=== PATIENT | female | born 1945 | race Caucasian/White ===

== ENCOUNTER 2018-01-10 21:07 | Observation (INO) ==
[2018-01-10] MEDS ORDERED: BENADRYL INJ 50 MG VIAL ONE (21:17)
[2018-01-10] MEDS ORDERED: SOLU-Medrol 125 MG VIAL ONE (21:17)
[2018-01-10] MEDS ORDERED: PEPCID 20 MG IV PREMIX* 20 MG/50 ML BAG IV ONE ×2 (21:18→21:19)
[2018-01-10] MEDS ORDERED: NS 1000 ML 1,000 ML ONE (21:18)
[2018-01-10] MEDS ORDERED: NS 1000 ML 1,000 ML IV ONE (21:19)
[2018-01-10] MEDS ORDERED: SOLU-Medrol 125 MG VIAL IVP ONE (21:19)
[2018-01-10] MEDS ORDERED: BENADRYL INJ 50 MG VIAL IVP ONE (21:19)
[2018-01-10 22:10] LABS: BASOPHILS # (AUTO) 0.1 X10^3/uL (0.0-0.1); BASOPHILS % (AUTO) 1.1 % (0.2-1.0); EOSINOPHILS # (AUTO) 0.3 x10^3/uL (0.0-0.2); EOSINOPHILS % (AUTO) 2.6 % (0.9-2.9); HEMATOCRIT 44.8 % (36.0-47.0); HEMOGLOBIN 14.9 g/dL (12.0-16.0); LYMPHOCYTES # (AUTO) 4.1 X10^3/uL (1.3-2.9); MEAN CORPUSCULAR HEMOGLOBIN 31.1 pg (27.0-34.0); MEAN CORPUSCULAR HGB CONC 33.3 g/dL (33.0-35.0); MEAN CORPUSCULAR VOLUME 93.5 fL (80.0-100.0); MEAN PLATELET VOLUME 9.2 fL (7.4-11.0); MONOCYTES # (AUTO) 1.1 x10^3/uL (0.3-0.8); MONOCYTES % (AUTO) 10.8 % (0.0-13.0); NEUTROPHILS # (AUTO) 4.9 x10^3/uL (2.2-4.8); NEUTROPHILS % (AUTO) 46.5 % (42.0-75.0); PLATELET COUNT 288 X10^3/uL (150.0-450.0); RED CELL DISTRIBUTION WIDTH 14.3 % (11.6-16.5); WHITE BLOOD COUNT 10.5 X10^3/uL (3.6-10.0)
[2018-01-10 22:18] LABS: ALANINE AMINOTRANSFERASE 30 Units/L (12-78); ALKALINE PHOSPHATASE 53 Units/L (46-116); ASPARTATE AMINO TRANSFERASE 22 Units/L (15-37); BLOOD UREA NITROGEN 44 mg/dL (7-18); CALCIUM 9.8 mg/dL (8.5-10.1); CARBON DIOXIDE 21.4 mmol/L (21-32); CHLORIDE 102 mmol/L (98-107); COR NA(FOR HYPERGLY) 142 mmol/L (136-145); SODIUM 140 mmol/L (136-145); TOTAL PROTEIN 7.6 g/dL (6.4-8.2); eGFR NON BLACK RACES 25 (>60)
--- NOTE | 2018-01-10 22:58 | DR.GENAD ---
HPI - PCP Primary Care Physician: HILL - HPI Comment HPI Comment: GENERALIZE HIVES AND PRURITUS AFTER CIPRO WAS TAKEN. NO THROAT DISCOMFORT. SLIGHT SOB. PATIENT FELT NAUSEA AND VOMITED. FELT LIKE SHE WAS GOING TO PASS OUT. SHE DID NOT FEEL GOOD AT THIS STAGE. CAME TO ED. - Complaint/Symptoms Chief Complaint Doctors Comments: ALLERGIC REACTION TO CIPRO, NEAR SYNCOPAL EPISODE. Chief Complaint:: POSSIBLE ALLERGIC REACTION. PRESCRIBED CIPRO 500MG PO BID TODAY, TOOK FIRST DOSE AT 1900 TONIGHT. STARTED WITH N/V, RASH, ITCHING, BECAME DIAPHORETIC, AND NEAR SYNCOPE 20 MINS AFTER TAKING MEDICATION. NOTE RASH TO ARMS BILAT. , PATIENT SCRATCHING, PATIENT WITH MILD SHAKING UNCONTROLLABLE. PATIENT WITH NO RESPIRATORY S/S. Self Treatment fo Chief Complaint: NONE - Nurses notes reviewed Nurses Notes Review: Yes - Source History Provided: Patient - Mode of Arrival Mode of Arrival: Ambulatory - Timing Onset of Chief Complaint: 01/10/18 Came on: Suddenly - Duration Duration: Constant Duration: Hours - Severity Severity: Moderate PMH - PMH Past Medical History: Yes Past Medical History: Diabetes, Dyslipidemia, Hypertension, Hypothyroidism Past Surgical History: Yes Surgical History: Cholecystectomy Past Surgical History Comment: PARTIAL HYSTERECTOMY. BLADDER TACT - Family History History of Family Medical Conditions: No - Social History Does patient currently use any type of tobacco product: No Have you used tobacco products in the last 12 months: No Type of Tobacco Use: None Does any household member use tobacco: No Alcohol Use: None Do you use any recreational Drugs:: No Lives With: Spouse Lives Where: Home - infectious screening Have you traveled outside the country in the last 6 months?: No Isolation: Standard ROS - Review of Systems Constitutional: No Symptoms Reported Eyes: No Symptoms Reported ENTM: No Symptoms Reported Respiratoy: No Symptoms Reported Cardiovascular: No Symptoms Reported Gastrointestinal/Abdominal: No Symptoms Reported Genitourinary: No Symptoms Reported Neurological: No Symptoms Reported Musculoskeletal: No Symptoms Reported Integumentary: No Symptoms Reported Hematologic/Lymphatic: No Symptoms Reported Endocrine: No Symptoms Reported All Other Systems: Reviewed and Negative PE - General Limitations: No Limitations General Appearance: Alert - Head Head Exam: Normal Inspection - Eyes Eye exam: Normal Appearance - ENT ENT Exam: Normal External Ear Exam External Ear Exam: Normal External Inspection TM/Canal Exam: Bilateral Normal Nose Exam: Normal Nose Exam Mouth Exam: Normal Inspection Throat Exam: Normal Inspection - Neck Neck Exam: Normal Inspection - Chest Chest Inspection: Normal Inspection - Respiratory Respiratory Exam: Normal Lung Sounds Bilat Respiratory Exam: Bilateral Clear to Auscultation - Cardiovascular Cardiovascular Exam: Regular Rate, Normal Rhythm, Normal Heart Sounds - Abdominal Exam Abdominal Exam: Normal Bowel Sounds, Soft. negative: Tenderness - Back Back Exam: Normal Inspection - Neurologic Neurological Exam: Alert, Oriented X3, CN II-XII Intact. negative: Motor Sensory Deficit - Vital Signs Vitals: Temperature 97.5 F Pulse Rate [Right Brachial] 84 Pulse Rate 86 Respiratory Rate 18 Blood Pressure [Right Arm] 168/72 Blood Pressure 122/58 O2 Sat by Pulse Oximetry 95 Course - Treatment Treatment: SEE ORDERS. - Consultation Consultation Comments: PATIENT ADMITTED BY DR ALEJANDRE. - Education/Counseling Education/Counseling: Patient, Family, Education Educated On: Diagnosis ROR - Labs Reviewed Laboratory Results Reviewed?: Yes Result Diagrams: 01/10/18 21:30 01/10/18 21:30 - Labs Reviewed Laboratory: WBC 10.5 X10^3/uL (3.6-10.0) H 01/10/18 21:30 RBC 4.80 X10^6/uL (3.5-5.4) 01/10/18 21:30 Hgb 14.9 g/dL (12.0-16.0) 01/10/18 21:30 Hct 44.8 % (36.0-47.0) 01/10/18 21:30 MCV 93.5 fL (80.0-100.0) 01/10/18 21:30 MCH 31.1 pg (27.0-34.0) 01/10/18 21:30 MCHC 33.3 g/dL (33.0-35.0) 01/10/18 21:30 RDW 14.3 % (11.6-16.5) 01/10/18 21:30 Plt Count 288 X10^3/uL (150.0-450.0) 01/10/18 21:30 MPV 9.2 fL (7.4-11.0) 01/10/18 21:30 Neut % (Auto) 46.5 % (42.0-75.0) 01/10/18 21:30 Lymph % (Auto) 39.0 % (21.0-51.0) 01/10/18 21:30 [place] % (Auto) 10.8 % (0.0-13.0) 01/10/18 21:30 Eos % (Auto) 2.6 % (0.9-2.9) 01/10/18 21:30 Baso % (Auto) 1.1 % (0.2-1.0) H 01/10/18 21:30 Neut # (Auto) 4.9 x10^3/uL (2.2-4.8) H 01/10/18 21:30 Lymph # (Auto) 4.1 X10^3/uL (1.3-2.9) H 01/10/18 21:30 [place] # (Auto) 1.1 x10^3/uL (0.3-0.8) H 01/10/18 21:30 Eos # (Auto) 0.3 x10^3/uL (0.0-0.2) H 01/10/18 21:30 Baso # (Auto) 0.1 X10^3/uL (0.0-0.1) 01/10/18 21:30 Absolute Nucleated RBC 0.1 /100WBC 01/10/18 21:30 Sodium 140 mmol/L (136-145) 01/10/18 21:30 Corrected Sodium 142 mmol/L (136-145) 01/10/18 21:30 Potassium 4.3 mmol/L (3.5-5.1) 01/10/18 21:30 Chloride 102 mmol/L (98-107) 01/10/18 21:30 Carbon Dioxide 21.4 mmol/L (21-32) 01/10/18 21:30 BUN 44 mg/dL (7-18) H 01/10/18 21:30 Creatinine 2.10 mg/dL (0.55-1.02) H 01/10/18 21:30 Est GFR (MDRD) Af Amer 30 (>60) L 01/10/18 21:30 Est GFR (MDRD) Non-Af 25 (>60) L 01/10/18 21:30 Glucose 175 mg/dL (65-99) H 01/10/18 21:30 Calcium 9.8 mg/dL (8.5-10.1) 01/10/18 21:30 Corrected Calcium TNP 01/10/18 21:30 Total Bilirubin 0.60 mg/dL (0.2-1.0) 01/10/18 21:30 AST 22 Units/L (15-37) 01/10/18 21:30 ALT 30 Units/L (12-78) 01/10/18 21:30 Alkaline Phosphatase 53 Units/L (46-116) 01/10/18 21:30 Total Protein 7.6 g/dL (6.4-8.2) 01/10/18 21:30 Albumin 4.0 g/dL (3.4-5.0) 01/10/18 21:30 Globulin 3.6 g/dL (2.5-4.5) 01/10/18 21:30 Albumin/Globulin Ratio 1.1 Ratio (1.1-2.1) 01/10/18 21:30 - Diagnosis Discharge Problem: Allergic reaction to drug, Near syncope - Discharge Plan Disposition: ADMITTED INPATIENT Condition: Stable
[2018-01-10] MEDS ORDERED: NS 1000 ML 1,000 ML IV SCH (23:00)
[2018-01-10 23:54] LABS: BILIRUBIN,URINE NEGATIVE (NEGATIVE); BLOOD/HEMOGLOBIN,URINE 1+ (NEGATIVE); GLUCOSE, URINE 4+ (NEGATIVE); KETONES,URINE NEGATIVE (NEGATIVE); LEUKOCYTE ESTERASE ,URINE 3+ (NEGATIVE); NITRITES,URINE POSITIVE (NEGATIVE); PROTEIN,URINE 2+ (NEGATIVE); UROBILINOGEN,URINE NORMAL (NORMAL)
[2018-01-11 00:05] LABS: APPEARANCE,URINE CLOUDY (CLEAR); BACTERIA,URINE 2+ /HPF (NEGATIVE); COLOR,URINE YELLOW (YELLOW); RBC,URINE 0-2 /HPF (NONE SEEN); SQUAMOUS EPITHELIAL CELL,UR FEW /HPF (NEGATIVE)
[2018-01-11 00:47] VITALS: BMI 29.4
[2018-01-11] MEDS ORDERED: BENADRYL INJ 50 MG VIAL IVP PRN (02:44)
[2018-01-11] MEDS ORDERED: SOLU-Medrol 40 MG VIAL IVP SCH (06:00)
[2018-01-11 06:19] LABS: BASOPHILS % (AUTO) 0.4 % (0.2-1.0); EOSINOPHILS % (AUTO) 0.2 % (0.9-2.9); HEMATOCRIT 40.4 % (36.0-47.0); HEMOGLOBIN 13.5 g/dL (12.0-16.0); LYMPHOCYTES # (AUTO) 1.1 X10^3/uL (1.3-2.9); LYMPHOCYTES % (AUTO) 11.3 % (21.0-51.0); MEAN CORPUSCULAR HEMOGLOBIN 31.3 pg (27.0-34.0); MEAN CORPUSCULAR HGB CONC 33.4 g/dL (33.0-35.0); MEAN CORPUSCULAR VOLUME 93.7 fL (80.0-100.0); MONOCYTES # (AUTO) 0.1 x10^3/uL (0.3-0.8); MONOCYTES % (AUTO) 1.6 % (0.0-13.0); NEUTROPHILS # (AUTO) 8.2 x10^3/uL (2.2-4.8); NEUTROPHILS % (AUTO) 86.5 % (42.0-75.0); PLATELET COUNT 199 X10^3/uL (150.0-450.0); RED BLOOD COUNT 4.31 X10^6/uL (3.5-5.4); RED CELL DISTRIBUTION WIDTH 14.3 % (11.6-16.5); WHITE BLOOD COUNT 9.5 X10^3/uL (3.6-10.0)
[2018-01-11] MEDS: SYNTHROID 112 mcg TAB PO SCH ×2 (06:23→08:56)
[2018-01-11 06:45] LABS: ALANINE AMINOTRANSFERASE 37 Units/L (12-78); ALBUMIN 3.5 g/dL (3.4-5.0); ALKALINE PHOSPHATASE 46 Units/L (46-116); ASPARTATE AMINO TRANSFERASE 20 Units/L (15-37); BLOOD UREA NITROGEN 46 mg/dL (7-18); CALCIUM 9.1 mg/dL (8.5-10.1); CARBON DIOXIDE 22.7 mmol/L (21-32); CHLORIDE 105 mmol/L (98-107); COR NA(FOR HYPERGLY) 142 mmol/L (136-145); CREATININE 1.98 mg/dL (0.55-1.02); SODIUM 138 mmol/L (136-145); TOTAL PROTEIN 6.9 g/dL (6.4-8.2); eGFR NON BLACK RACES 26 (>60)
[2018-01-11] MEDS ORDERED: GLUCOPHAGE ONE (08:22)
--- NOTE | 2018-01-11 08:40 | DR.H&P ---
H&P - History & Physical for Day of: H&P Date: 01/10/18 - Chief Complaint Chief Complaint: POSSIBLE ALLERGIC REACTION - History of Present Illness History of Present Illness: IS A 72 YEAR OLD PATIENT OF OURS WHO PRESENTED TO THE EMERGENCY ROOM WITH COMPLAINTS OF NAUSEA, VOMITING, RASH, ITCHING, DIAPHORESIS, AND FEELING FAINT. PATIENT REPORTS THAT SYMPTOMS STARTED APPROXIMATELY 20 MINUTES AFTER TAKING A DOSE OF CIPRO THAT WAS PRESCRIBED FOR HER TODAY FOR A URINARY TRACT INFECTION. SHE DENIES SHORTNESS OF BREATH OR THROAT DISCOMFORT. ON EXAMINATION, PATIENT NOTED WITH GENERALIZED HIVES AND PRURITIS. ON ARRIVAL TO THE ER, VITALS WERE 97.5-86-18-98%-122/58. LABS WERE OBTAINED. ABNORMAL LAB VALUES INCLUDE THE FOLLOWING: WBC 10.5, BUN 44, CREATININE 2.10, GLUCOSE 175. SHE WAS GIVEN SOLU-MEDROL 125MG IV X 1, PEPCID 20MG IV X 1, BENADRYL 50MG IV X 1, NORMAL SALINE BOLUS WITH SLIGHT IMPROVEMENT IN SYMPTOMS. WE ADMITTED PATIENT FOR FURTHER EVALUATION AND TREATMENT. SHE WAS STARTED ON NORMAL SALINE AT 50ML/HR, PEPCID 20MG IV DAILY, BENADRYL 50MG IV Q8H , SOLU-MEDROL 40MG IV Q8H, AND HOME MEDICATIONS WERE RESUMED. - Past Medical History Past Medical History: Diabetes, Dyslipidemia, Hypertension, Hypothyroidism - Past Surgical History Surgical History: Cholecystectomy - Social History Does patient currently use any type of tobacco product: No Have you used tobacco products in the last 12 months: No Type of Tobacco Use: None Does any household member use tobacco: No Alcohol Use: None Drug Use: None - Medications Home Medications: ciprofloxacin [From Cipro] Allergy (Verified 01/10/18 21:20) iodine Allergy (Verified 01/10/18 21:40) CONTINUE taking the following medications atorvastatin 1 tab PO HS 01/10/18 [History] canagliflozin [Invokana] 1 tab PO DAILY 01/10/18 [History] cholecalciferol (vitamin D3) [Vitamin D3] 2 tab PO DAILY 01/10/18 [History] fluoxetine 1 cap PO DAILY 01/10/18 [History] glimepiride 6.5 mg PO BID 01/10/18 [History] levothyroxine 1 tab PO DAILY 01/10/18 [History] losartan 1 tab PO DAILY 01/10/18 [History] metformin 1 tab PO BID 01/10/18 [History] omeprazole 1 tab PO DAILY 01/10/18 [History] triamterene-hydrochlorothiazid 2 cap PO DAILY 01/10/18 [History] - Review of Systems Constitutional: Sweats, Weakness ENT: No Symptoms Reported Respiratory: No Symptoms Reported Cardiovascular: Light Headedness Gastrointestinal: See HPI, Nausea, Vomiting Genitourinary: No Symptoms Reported Musculoskeletal: No Symptoms Reported Skin: See HPI, Rash Neurological: Weakness - Physical Exam Vital Signs: Temperature 97.9 F Pulse Rate [Right Brachial] 87 Pulse Rate 86 Respiratory Rate 20 Blood Pressure [Right Arm] 128/62 Blood Pressure 122/58 O2 Sat by Pulse Oximetry 94 Oriented: Normal Eyes: Normal Ear: Normal Nose: Normal Throat: Normal Respiratory: Diminished Throughout Cardiovascular: Normal. negative: S3, S4, Murmur : Normal Auscultation: Bowel Sounds: Normal Palpation: Normal Tenderness: Normal Skin: Rash, Red, Diaphoresis Musculoskeletal: Normal Psychiatric: Normal Mood Description: Calm Affect: Normal Speech Pattern: Clear - Assessment/Plan (1) Allergic reaction to drug Qualifiers: Encounter type: initial encounter Qualified Code(s): T78.40XA - Allergy, unspecified, initial encounter Status: Acute Plan: ADMIT, NORMAL SALINE AT 50ML/HR, BENADRYL PRN, COLU-MEDROL 40MG IV Q8H, PEPCID 20MG IV DAILY, CONTINUE TO MONITOR - Allergies Allergies/Adverse Reactions: Allergies Allergy/AdvReac Type Severity Reaction Status Date / Time ciprofloxacin [From Cipro] Allergy Verified 01/10/18 21:20 iodine Allergy Verified 01/10/18 21:40
[2018-01-11] MEDS ORDERED: CANAGLIFLOZIN PO SCH (09:00)
[2018-01-11] MEDS ORDERED: PEPCID 20 MG IV PREMIX* 20 MG/50 ML BAG IV SCH (09:00)
[2018-01-11] MEDS ORDERED: MAXZIDE 37.5/25 MG PO SCH (09:00)
[2018-01-11] MEDS ORDERED: SYNTHROID 112 mcg TAB PO SCH (09:00)
[2018-01-11] MEDS ORDERED: PROzac PO SCH (09:00)
[2018-01-11] MEDS ORDERED: GLUCOPHAGE PO SCH (09:00)
[2018-01-11] MEDS ORDERED: AMARYL TAB 4 MG PO SCH ×2 (09:00)
[2018-01-11] MEDS ORDERED: COZAAR PO SCH (09:00)
[2018-01-11] MEDS ORDERED: CHOLECALCIFEROL PO SCH (09:00)
[2018-01-11 10:29] VITALS: BP 132/61
[2018-01-11] MEDS ORDERED: LIPITOR TAB 20 MG PO SCH (21:00)
--- NOTE | 2018-01-26 13:48 | DR.CARTERD ---
- Discharge Summary for: Discharge Summary for Date of:: 01/11/18 - Admission Date Date of Admission: 01/10/18 - Admission Diagnoses Admission Diagnosis: 1. Allergic reaction 2. Near syncope 3. Nausea and vomiting 4. Pruritis and Hives - Discharge Date Discharge Date: 01/11/18 - Discharge Diagnoses Discharge Diagnosis: 1. Allergic reaction 2. Near syncope 3. Nausea and vomiting 4. Pruritis and Hives - Hospital Course Hospital Course: DAY ONE, MS. MARQUEZ IS A 72 YEAR OLD PATIENT OF OURS WHO PRESENTED TO THE EMERGENCY ROOM WITH COMPLAINTS OF NAUSEA, VOMITING, RASH, ITCHING, DIAPHORESIS, AND FEELING FAINT. PATIENT REPORTED THAT SYMPTOMS STARTED APPROXIMATELY 20 MINUTES AFTER TAKING A DOSE OF CIPRO THAT WAS PRESCRIBED FOR HER THIS DAY FOR A URINARY TRACT INFECTION. SHE DENIED SHORTNESS OF BREATH, THROAT DISCOMFORT, OR DIFFICULTY BREATHING. ON EXAMINATION, PATIENT NOTED WITH GENERALIZED HIVES AND PRURITIS. ON ARRIVAL TO THE ER, VITALS WERE 97.5-86-18-98%-122/58. LABS WERE OBTAINED. ABNORMAL LAB VALUES INCLUDED THE FOLLOWING: WBC 10.5, BUN 44, CREATININE 2.10, GLUCOSE 175. SHE WAS GIVEN SOLU-MEDROL 125MG IV X 1, PEPCID 20MG IV X 1, BENADRYL 50MG IV X 1, NORMAL SALINE BOLUS WITH SLIGHT IMPROVEMENT IN SYMPTOMS. WE ADMITTED PATIENT FOR FURTHER EVALUATION AND TREATMENT. SHE WAS STARTED ON NORMAL SALINE AT 50ML/HR, PEPCID 20MG IV DAILY, BENADRYL 50MG IV Q8H , SOLU-MEDROL 40MG IV Q8H, AND HOME MEDICATIONS WERE RESUMED. DAY TWO, PATIENT REPORTED SHE FELT MUCH BETTER AND WAS READY FOR DISCHARGE. PATIENT WAS NOTED WITH NO PRURITIS OR HIVES. NO DISTRESS WAS NOTED. SHE DENIED SHORTNESS OF BREATH, DIFFICULTY BREATHING, OR THROAT DISCOMFORT. PATIENT REPORTED SYMPTOMS HAD RESOLVED. VITAL SIGNS STABLE. LABS WNL. WE PLANNED FOR DISCHARGE. INSTRUCTIONS FOR MEDICATIONS AND FOLLOW UP WERE DISCUSSED WITH PATIENT AND FAMILY, BOTH VOICED UNDERSTANDING. PATIENT DISCHARGED HOME IN STABLE CONDITION WITH FAMILY. - Discharge Medications Discharge Medications: Home Medication List atorvastatin 1 tab PO HS 01/10/18 [History] canagliflozin 1 tab PO DAILY 01/10/18 [History] cholecalciferol (vitamin D3) 2 tab PO DAILY 01/10/18 [History] fluoxetine 1 cap PO DAILY 01/10/18 [History] glimepiride 6.5 mg PO BID 01/10/18 [History] levothyroxine 1 tab PO DAILY 01/10/18 [History] losartan 1 tab PO DAILY 01/10/18 [History] metformin 1 tab PO BID 01/10/18 [History] omeprazole 1 tab PO DAILY 01/10/18 [History] triamterene-hydrochlorothiazid 2 cap PO DAILY 01/10/18 [History] cetirizine [Zyrtec] 10 mg PO HS #14 tab 01/11/18 [Rx] montelukast [Singulair] 10 mg PO DAILY #14 tab 01/11/18 [Rx] nitrofurantoin monohyd/m-cryst [Macrobid] 100 mg PO BID #20 cap 01/11/18 [Rx] Prescriptions: cetirizine [Zyrtec] Larry Bernal montelukast [Singulair] Larry Bernal nitrofurantoin monohyd/m-cryst [Macrobid] Larry Bernal - Discharge Disposition Discharge Disposition: Patient is to follow up in our office in one week.
== END 2018-01-11 11:00 | disposition home or self-care (01) ==
LOC: EDBD → MED/SURG 21:08 → ER 21:08 → MED/SURG 23:12
PROVIDERS: ADMIT Internal Medicine; ATTEND Internal Medicine
DX: T36.8X5A Adverse effect of other systemic antibiotics, initial encounter; R55 Syncope and collapse; Y92.9 Unspecified place or not applicable; I10 Essential (primary) hypertension; N39.0 Urinary tract infection, site not specified; E11.9 Type 2 diabetes mellitus without complications
CPT/HCPCS: 36415; 80053; 81001; 85025; 87086; 94760; 96365; 96367; 96374; 96375; 99284; A4222; S0028; G0378; J1200; J2920; J2930; J7030

== ENCOUNTER 2018-04-25 20:02 | Inpatient (IN) ==
[2018-04-25] MEDS ORDERED: PREDNISONE TAB 10 MG PO ONE (20:51)
[2018-04-25 21:25] LABS: BASOPHILS # (AUTO) 0.1 X10^3/uL (0.0-0.1); BASOPHILS % (AUTO) 1.3 % (0.2-1.0); EOSINOPHILS # (AUTO) 0.4 x10^3/uL (0.0-0.2); EOSINOPHILS % (AUTO) 4.6 % (0.9-2.9); HEMOGLOBIN 11.5 g/dL (12.0-16.0); LYMPHOCYTES # (AUTO) 2.2 X10^3/uL (1.3-2.9); LYMPHOCYTES % (AUTO) 24.4 % (21.0-51.0); MEAN CORPUSCULAR HEMOGLOBIN 31.5 pg (27.0-34.0); MEAN CORPUSCULAR HGB CONC 33.9 g/dL (33.0-35.0); MEAN CORPUSCULAR VOLUME 93.1 fL (80.0-100.0); MEAN PLATELET VOLUME 8.3 fL (7.4-11.0); MONOCYTES # (AUTO) 0.9 x10^3/uL (0.3-0.8); NEUTROPHILS # (AUTO) 5.4 x10^3/uL (2.2-4.8); NEUTROPHILS % (AUTO) 59.7 % (42.0-75.0); PLATELET COUNT 284 X10^3/uL (150.0-450.0); RED BLOOD COUNT 3.65 X10^6/uL (3.5-5.4); RED CELL DISTRIBUTION WIDTH 13.5 % (11.6-16.5); WHITE BLOOD COUNT 9.1 X10^3/uL (3.6-10.0)
[2018-04-25 21:39] LABS: ALBUMIN 3.2 g/dL (3.4-5.0); CALCIUM 7.8 mg/dL (8.5-10.1); CARBON DIOXIDE 28.2 mmol/L (21-32); COR CA(FOR HYPOALB) 8.4 mg/dL (8.5-10.1); CREATININE 1.33 mg/dL (0.55-1.02); MAGNESIUM 1.3 mg/dL (1.7-2.9); TOTAL PROTEIN 6.7 g/dL (6.4-8.2)
[2018-04-25 22:09] VITALS: BMI 31.2
[2018-04-25] MEDS ORDERED: HEPARIN SODIUM INJ 5000 UNITS IVP ONE (22:09)
[2018-04-25] MEDS: HEPARIN SODIUM IN D5W 25,000 UNITS/500 ML BAG IV PRN (22:20)
[2018-04-25 22:28] LABS: CKMB % 0.9 % (<4); CREATINE KINASE 111 Units/L (26-192); CREATINE KINASE MB < 1.0 ng/mL (0-4.0); TROPONIN I < 0.02 ng/mL (0-1.5)
[2018-04-25 22:32] LABS: BILIRUBIN,URINE NEGATIVE (NEGATIVE); BLOOD/HEMOGLOBIN,URINE 5+ (NEGATIVE); GLUCOSE, URINE NEGATIVE (NEGATIVE); KETONES,URINE NEGATIVE (NEGATIVE); LEUKOCYTE ESTERASE ,URINE NEGATIVE (NEGATIVE); NITRITES,URINE NEGATIVE (NEGATIVE); PROTEIN,URINE 2+ (NEGATIVE); UROBILINOGEN,URINE NORMAL (NORMAL)
[2018-04-25 22:41] LABS: APPEARANCE,URINE SLIGHTLY HAZY (CLEAR); COLOR,URINE PALE YELLOW (YELLOW)
[2018-04-25 22:42] LABS: BACTERIA,URINE NEGATIVE /HPF (NEGATIVE); SQUAMOUS EPITHELIAL CELL,UR RARE /HPF (NEGATIVE)
[2018-04-25] MEDS ORDERED: NORMODYNE INJ 100 MG VIAL ONE (22:56)
[2018-04-25] MEDS: NORMODYNE INJ 20 MG VIAL IVP PRN ×3 (23:05→23:43)
[2018-04-26] MEDS: NORMODYNE INJ 20 MG VIAL IVP PRN ×9 (00:05→16:24)
[2018-04-26 01:56] LABS: CKMB % 0.5 % (<4); CREATINE KINASE 206 Units/L (26-192); CREATINE KINASE MB < 1.0 ng/mL (0-4.0); TROPONIN I < 0.02 ng/mL (0-1.5)
[2018-04-26] MEDS ORDERED: PREDNISONE TAB 10 MG PO ONE ×3 (03:40→09:40)
[2018-04-26 05:18] LABS: BASOPHILS % (AUTO) 0.4 % (0.2-1.0); EOSINOPHILS % (AUTO) 0.5 % (0.9-2.9); HEMOGLOBIN 11.7 g/dL (12.0-16.0); LYMPHOCYTES # (AUTO) 1.1 X10^3/uL (1.3-2.9); LYMPHOCYTES % (AUTO) 11.5 % (21.0-51.0); MEAN CORPUSCULAR HEMOGLOBIN 31.2 pg (27.0-34.0); MEAN CORPUSCULAR HGB CONC 33.4 g/dL (33.0-35.0); MEAN CORPUSCULAR VOLUME 93.4 fL (80.0-100.0); MEAN PLATELET VOLUME 8.8 fL (7.4-11.0); MONOCYTES # (AUTO) 0.2 x10^3/uL (0.3-0.8); MONOCYTES % (AUTO) 2.2 % (0.0-13.0); NEUTROPHILS % (AUTO) 85.4 % (42.0-75.0); PLATELET COUNT 308 X10^3/uL (150.0-450.0); RED BLOOD COUNT 3.75 X10^6/uL (3.5-5.4); RED CELL DISTRIBUTION WIDTH 13.5 % (11.6-16.5); WHITE BLOOD COUNT 9.3 X10^3/uL (3.6-10.0)
[2018-04-26 05:40] LABS: ALANINE AMINOTRANSFERASE 25 Units/L (12-78); ALBUMIN 3.2 g/dL (3.4-5.0); ALKALINE PHOSPHATASE 50 Units/L (46-116); ASPARTATE AMINO TRANSFERASE 20 Units/L (15-37); BLOOD UREA NITROGEN 16 mg/dL (7-18); CALCIUM 7.9 mg/dL (8.5-10.1); CARBON DIOXIDE 26.1 mmol/L (21-32); CHLORIDE 104 mmol/L (98-107); CHOLESTEROL 89 mg/dL (0-200); CKMB % 1.1 % (<4); COR CA(FOR HYPOALB) 8.5 mg/dL (8.5-10.1); COR NA(FOR HYPERGLY) 142 mmol/L (136-145); CREATINE KINASE 92 Units/L (26-192); CREATINE KINASE MB < 1.0 ng/mL (0-4.0); CREATININE 1.19 mg/dL (0.55-1.02); HDL CHOLESTEROL 30 mg/dL (40-60); SODIUM 140 mmol/L (136-145); TOTAL PROTEIN 6.8 g/dL (6.4-8.2); TRIGLYCERIDES 47 mg/dL (0-150); TROPONIN I < 0.02 ng/mL (0-1.5); eGFR NON BLACK RACES 47 (>60)
[2018-04-26] MEDS ORDERED: BENADRYL CAP 50 MG PO ONE (09:40)
[2018-04-26] MEDS ORDERED: PREDNISONE TAB 10 MG PO SCH (09:40)
[2018-04-26] MEDS ORDERED: DEXTROMETHORPHAN GUAIFENESIN PO PRN (10:09)
[2018-04-26] MEDS ORDERED: CHOLECALCIFEROL PO SCH (10:15)
[2018-04-26] MEDS ORDERED: [UNRECOGNIZED DRUG - OTHER] PO SCH (10:15)
[2018-04-26] MEDS ORDERED: MUCINEX DM PO PRN (10:39)
[2018-04-26] MEDS ORDERED: XARELTO PO SCH (11:00)
[2018-04-26] MEDS ORDERED: LOPRESSOR INJ 5 MG AMP IVP PRN (11:15)
[2018-04-26] MEDS: PROzac PO SCH (12:18)
[2018-04-26] MEDS: COZAAR PO SCH (12:18)
[2018-04-26] MEDS: PriLOSEC PO SCH (12:18)
[2018-04-26] MEDS: SYNTHROID 112 mcg TAB PO SCH (12:18)
[2018-04-26] MEDS ORDERED: HEPARIN SODIUM INJ 5000 UNITS IVP ONE (12:56)
--- NOTE | 2018-04-26 13:37 | CT ---
HISTORY: Shortness of breath, chest pain, fever. Prior medical history of diabetes, dyslipidemia, hyp ertension and hypothyroidism. Study: CT chest with IV contrast Comparison: No priors Technique: Multiple axial images of the chest were obtained from the thoracic inlet to the upper abdo men during the administration of IV contrast. Coronal and sagittal images are also reviewed. MIP everardo nstructions are performed in the axial plane. Dose reduction techniques utilized automatic exposure c ontrol. Findings: A precarinal lymph node is present measuring 0.87 x 1.33 cm. No significant mediastinal adenopathy is seen. There is no pericardial effusion observed. The thoracic aorta is normal in its contour witho ut evidence for aneurysmal dilatation. The central pulmonary arterial system does not demonstrate ce ntral filling defects to suggest pulmonary emboli. Evaluation of the lung parenchyma reveals moderate bilateral pleural effusions, right greater than le ft. There is compressive atelectasis in the lung bases.. No pulmonary nodule or mass can be identifi ed. The bony thorax is unremarkable in its appearance. Liver and adrenal glands are normal. Gallbla dder is surgically absent. There are simple cyst of the left kidney.. IMPRESSION: Moderate bilateral pleural effusions with compressive atelectasis in the lung bases. No evidence of thoracic aortic aneurysm or pulmonary embolus. Reported By:
--- NOTE | 2018-04-26 14:22 | DR.UPDATE ---
H&P Update History and Physical Update: WAS SEEN IN THE OFFICE ON 04/25/2018. A H&P WAS COMPLETED PRIOR TO ADMISSION. PATIENT ADMITTED TO THE HOSPITAL ON THE CHEST PAIN PROTOCOL FOR SHORTNESS OF BREATH AND UNSTABLE ANGINA. SHE WAS ADMITTED TO THE INTENSIVE CARE UNIT ON A HEPARIN DRIP. SHE HAS BEEN SEEN AND EXAMINED WITH NO CHANGES NOTED TO H&P. Changes noted: NO Yes with the following:
--- NOTE | 2018-04-26 17:50 | CT ---
CORONARY CTA WITHOUT AND WITH CONTRAST CALCIUM SCORE CLINICAL INDICATION: Chest pain. COMPARISON: Shortness of breath with chest pain and fever PROCEDURE: Gated images of the coronary arteries were obtained before and after the administration of IV contrast. Coronary artery calcium scoring was performed. Dose reduction techniques including Auto mated Exposure Control (AEC) and adjustment of mA and kV were utlized. FINDINGS: Coronary CTA- LM: No significant stenosis. LAD: No significant stenosis. LCX: Focal region of calcification and less than 50% stenosis of the proximal circumflex artery just distal to its origin. Just distal to that is an additional focus of less than 50% stenosis. RCA: No significant stenosis. Coronary calcium scoring - 346 LM: 0 LAD: 63 LCX: 283 RCA: 0 Ejection fraction 80%. Moderate pericardial effusion. Bilateral pleural effusions. Please see chest CT for further evaluatio n of the chest. IMPRESSION: 1. Two focal regions of 50% or less stenosis of the proximal left circumflex artery. 2. Calcium score of 346. This places the patient at the 75th to 90th percentile for females of the sa vt age. Mild coronary artery disease highly likely, significant narrowings possible.. Reported By:
[2018-04-26 19:23] LABS: HEMATOCRIT 33.7 % (36.0-47.0); HEMOGLOBIN 11.4 g/dL (12.0-16.0)
[2018-04-26] MEDS: LIPITOR TAB 20 MG PO SCH (20:26)
[2018-04-26] MEDS: NORVASC TAB 5 MG PO SCH (20:26)
[2018-04-27] MEDS: HEPARIN SODIUM IN D5W 25,000 UNITS/500 ML BAG IV PRN (01:13)
[2018-04-27 03:37] LABS: BASOPHILS % (AUTO) 0.3 % (0.2-1.0); HEMATOCRIT 32.1 % (36.0-47.0); HEMOGLOBIN 10.7 g/dL (12.0-16.0); LYMPHOCYTES # (AUTO) 1.8 X10^3/uL (1.3-2.9); LYMPHOCYTES % (AUTO) 13.3 % (21.0-51.0); MEAN CORPUSCULAR HGB CONC 33.2 g/dL (33.0-35.0); MEAN CORPUSCULAR VOLUME 93.3 fL (80.0-100.0); MEAN PLATELET VOLUME 8.4 fL (7.4-11.0); MONOCYTES # (AUTO) 1.5 x10^3/uL (0.3-0.8); NEUTROPHILS % (AUTO) 75.4 % (42.0-75.0); PLATELET COUNT 290 X10^3/uL (150.0-450.0); RED BLOOD COUNT 3.45 X10^6/uL (3.5-5.4); RED CELL DISTRIBUTION WIDTH 13.8 % (11.6-16.5); WHITE BLOOD COUNT 13.2 X10^3/uL (3.6-10.0)
[2018-04-27 03:44] LABS: CALCIUM 7.9 mg/dL (8.5-10.1); CARBON DIOXIDE 27.5 mmol/L (21-32); COR CA(FOR HYPOALB) 8.7 mg/dL (8.5-10.1); CREATININE 1.36 mg/dL (0.55-1.02); TOTAL PROTEIN 6.2 g/dL (6.4-8.2)
[2018-04-27] MEDS ORDERED: HEPARIN SODIUM INJ 5000 UNITS IVP ONE (04:25)
[2018-04-27] MEDS ORDERED: K-RIDER 10 MEQ/NS 100 ML 10 MEQ/100 ML BAG IV PRN (06:40)
[2018-04-27] MEDS ORDERED: KLOR-CON PO PRN (06:40)
[2018-04-27] MEDS ORDERED: POTASSIUM CHL 60 MEQ/NS 0.45% 500 ML IV PRN (06:40)
[2018-04-27] MEDS ORDERED: POTASSIUM CHLORIDE LIQ 20 MEQ UDC PO PRN (06:40)
[2018-04-27] MEDS ORDERED: MICRO K EXTEN CAP 10 MEQ PO PRN (06:40)
[2018-04-27] MEDS ORDERED: POTASSIUM CHL 40 MEQ/NS 0.45% 500 ML IV PRN (06:40)
--- NOTE | 2018-04-27 07:23 | RAD ---
HISTORY: Fever, chest pain Study: Chest AP portable Comparison: CT chest 04/26/2018 Findings: The heart is within normal limits in size. No congestive heart failure is noted. Bilateral pleural ef fusions partially obscures the lower lobes bilaterally. The upper lung hendricks are clear. The bony tho rax is unremarkable. IMPRESSION: Bilateral pleural effusions partially obscuring the lung markings in the lower lobes bilaterally Reported By:
[2018-04-27] MEDS ORDERED: INSULIN ASPART U subcut SCH (09:00)
[2018-04-27] MEDS: PROzac PO SCH (09:37)
[2018-04-27] MEDS: SYNTHROID 112 mcg TAB PO SCH (09:38)
[2018-04-27] MEDS: COZAAR PO SCH (09:38)
[2018-04-27] MEDS: PriLOSEC PO SCH (09:38)
[2018-04-27] MEDS: VITAMIN D3 PO SCH (09:51)
[2018-04-27] MEDS: K-DUR TAB 20 MEQ PO PRN ×3 (12:53→21:32)
[2018-04-27] MEDS ORDERED: LASIX IVP ONE (14:18)
[2018-04-27] MEDS ORDERED: NS 500 ML IV 500 ML IV ONE (14:36)
[2018-04-27] MEDS: MAGNESIUM SULFATE 1 GRAM/100 mL PREMIX 1 GM/100 ML BAG IV PRN ×2 (14:50→16:01)
--- NOTE | 2018-04-27 15:55 | PCM.PROG ---
Progress Note - Progress Note for Day of Date of Exam: 04/26/18 - Subjective Subjective: WAS ADMITTED FOR SHORTNESS OF BREATH, ANGINA, AND HYPERTENSION. TODAY, SHE IS ALERT AND ORIENTED, LYING IN BED ON MORNING ROUNDS. SHE CONTINUES WITH COMPLAINTS OF SHORTNESS OF BREATH AND INTERMITTENT CHEST PAIN. SHE ALSO REPORTS SWELLING TO THE LOWER EXTREMITIES. PATIENT STATES THAT S HE IS UNABLE TO WALK FOR LONG DISTANCES WITHOUT BECOMING SEVERELY SHORT OF BREATH. ON EXAMINATION, SEASONAL CLERK REVEALS SINUS RHYTHM WITH NORMAL RATE. BILATERAL LUNGS ARE NOTED WITH DIMINISHED LUNG SOUNDS THROUGHOUT. ABDOMEN IS ROUND, SOFT, AND NON-TENDER WITH NORMAL BOWEL SOUNDS NOTED IN ALL QUADRANTS. BILATERAL LOWER EXTREMITIES ARE NOTED WITH 1+ PITTING EDEMA. HER VITALS THIS MORNING ARE 98.0-64-20-94%-197/84. LABS WERE OBTAINED. ABNORMAL LAB VALUES INCLUDE THE FOLLOWING: WBC 11.7, HCT 35.0, POTASSIUM 3.4, CREATININE 1.19, GLUCOSE 200, CALCIUM 7.69, ALBUMIN 3.2. CARDIAC ENZYMES WITHIN NORMAL LIMITS. MOST RECENT EKG REVEALS SINUS RHYTHM WITH HR 70. AN ECHOCARDIOGRAM REVEALED AN EJECTION FRACTION OF 50%. SHE REMAINS ON A HEPARIN DRIP AT THIS TIME. SHE IS SCHEDULE FOR A CARDIAC CTA WELL A CHEST CT TODAY. WE WILL RESUME HER HOME MEDICATIONS TODAY WHICH INCLUDE ANTIHYPERTENSIVES. OTHERWISE, WE WILL CONTINUE WITH CURRENT PLAN OF CARE. WE WILL FOLLOW UP WITH AM LABS AND CONTINUE TO MONITOR PATIENT. - Past Medical Family Social History Past Med/Fam/Surg Hx: No changes since H&P Allergies: Allergies ciprofloxacin [From Cipro] Allergy (Verified 01/10/18 21:20) iodine Allergy (Verified 01/10/18 21:40) levofloxacin [From Levaquin] Allergy (Verified 01/11/18 10:11) - Review of Systems ROS: No change since H&P - Vital Signs and I&O's Vital Signs: Temperature 97.4 F Pulse Rate [Left Radial] 81 Pulse Rate 65 Respiratory Rate 23 Blood Pressure [Right Arm] 172/74 Blood Pressure 174/77 O2 Sat by Pulse Oximetry 96 Intake and Output: Intake & Output 04/25/18 04/26/18 04/27/18 04/28/18 11:59 11:59 11:59 11:59 Intake Total 530.46 / 530.46 732.74 / 732.74 0.8 / 0.8 Output Total 1070 / 1070 1620 / 1620 Balance -539.54 / -539.54 -887.26 / -887.26 0.8 / 0.8 - Physical Exam Oriented: Normal Eyes: Normal Ear: Normal Nose: Normal Throat: Normal Respiratory: Generalized, Diminished Cardiovascular: Normal : Normal Auscultation: Bowel Sounds: Normal Palpation: Normal Tenderness: Normal Skin: Normal Musculoskeletal: Normal Psychiatric: Normal Mood Description: Calm Affect: Normal Speech Pattern: Clear - Laboratory and Diagnostics Result Diagrams: 04/27/18 03:12 04/27/18 15:08 Labs: Laboratory WBC 13.2 X10^3/uL (3.6-10.0) H 04/27/18 03:12 RBC 3.45 X10^6/uL (3.5-5.4) L 04/27/18 03:12 Hgb 10.7 g/dL (12.0-16.0) L 04/27/18 03:12 Hct 32.1 % (36.0-47.0) L 04/27/18 03:12 MCV 93.3 fL (80.0-100.0) 04/27/18 03:12 MCH 31.0 pg (27.0-34.0) 04/27/18 03:12 MCHC 33.2 g/dL (33.0-35.0) 04/27/18 03:12 RDW 13.8 % (11.6-16.5) 04/27/18 03:12 Plt Count 290 X10^3/uL (150.0-450.0) 04/27/18 03:12 MPV 8.4 fL (7.4-11.0) 04/27/18 03:12 Neut % (Auto) 75.4 % (42.0-75.0) H 04/27/18 03:12 Lymph % (Auto) 13.3 % (21.0-51.0) L 04/27/18 03:12 [place] % (Auto) 11.0 % (0.0-13.0) 04/27/18 03:12 Eos % (Auto) 0.0 % (0.9-2.9) L 04/27/18 03:12 Baso % (Auto) 0.3 % (0.2-1.0) 04/27/18 03:12 Neut # (Auto) 10.0 x10^3/uL (2.2-4.8) H 04/27/18 03:12 Lymph # (Auto) 1.8 X10^3/uL (1.3-2.9) 04/27/18 03:12 [place] # (Auto) 1.5 x10^3/uL (0.3-0.8) H 04/27/18 03:12 Eos # (Auto) 0.0 x10^3/uL (0.0-0.2) 04/27/18 03:12 Baso # (Auto) 0.0 X10^3/uL (0.0-0.1) 04/27/18 03:12 Absolute Nucleated RBC 0.0 /100WBC 04/27/18 03:12 INR Target Range - 04/25/18 21:10 INR 2.16 (0.8-1.3) H 04/25/18 21:10 APTT > 293.0 SECONDS (22.9-36.5) H* 04/27/18 08:57 PTT Comment - 04/27/18 08:57 Sodium 140 mmol/L (136-145) 04/27/18 03:12 Corrected Sodium 143 mmol/L (136-145) 04/27/18 03:12 Potassium 3.2 mmol/L (3.5-5.1) L 04/27/18 15:08 Chloride 103 mmol/L (98-107) 04/27/18 03:12 Carbon Dioxide 27.5 mmol/L (21-32) 04/27/18 03:12 BUN 24 mg/dL (7-18) H 04/27/18 03:12 Creatinine 1.36 mg/dL (0.55-1.02) H 04/27/18 03:12 Est GFR (MDRD) Af Amer 49 (>60) L 04/27/18 03:12 Est GFR (MDRD) Non-Af 41 (>60) L 04/27/18 03:12 Glucose 216 mg/dL (65-99) H 04/27/18 03:12 POC Glucose (mg/dL) 150 mg/dL (65-99) H 04/27/18 12:01 Calcium 7.9 mg/dL (8.5-10.1) L 04/27/18 03:12 Corrected Calcium 8.7 mg/dL (8.5-10.1) 04/27/18 03:12 Magnesium 1.5 mg/dL (1.7-2.9) L 04/27/18 03:12 Total Bilirubin 0.60 mg/dL (0.2-1.0) 04/27/18 03:12 AST 12 Units/L (15-37) L 04/27/18 03:12 ALT 21 Units/L (12-78) 04/27/18 03:12 Alkaline Phosphatase 45 Units/L (46-116) L 04/27/18 03:12 Creatine Kinase 92 Units/L (26-192) 04/26/18 04:25 CK-MB (CK-2) < 1.0 ng/mL (0-4.0) 04/26/18 04:25 CK/CKMB % Calc 1.1 % (<4) 04/26/18 04:25 Troponin I < 0.02 ng/mL (0-1.5) 04/26/18 04:25 Total Protein 6.2 g/dL (6.4-8.2) L 04/27/18 03:12 Albumin 3.0 g/dL (3.4-5.0) L 04/27/18 03:12 Globulin 3.2 g/dL (2.5-4.5) 04/27/18 03:12 Albumin/Globulin Ratio 0.9 Ratio (1.1-2.1) L 04/27/18 03:12 Triglycerides 47 mg/dL (0-150) 04/26/18 04:25 Cholesterol 89 mg/dL (0-200) 04/26/18 04:25 LDL Cholesterol, Calc 50 mg/dL (0-100) 04/26/18 04:25 HDL Cholesterol 30 mg/dL (40-60) L 04/26/18 04:25 Cholesterol/HDL Ratio 3.0 (0.0-5.0) 04/26/18 04:25 Specimen Type Clean catch urine 04/25/18 22:15 Urine Color Pale yellow (YELLOW) 04/25/18 22:15 Urine Appearance Slightly hazy (CLEAR) 04/25/18 22:15 Urine pH 6.0 (5.0 - 8.0) 04/25/18 22:15 Ur Specific [place] 1.005 (1.000-1.030) 04/25/18 22:15 Urine Protein 2+ (NEGATIVE) 04/25/18 22:15 Urine Glucose (UA) Negative (NEGATIVE) 04/25/18 22:15 Urine Ketones Negative (NEGATIVE) 04/25/18 22:15 Urine Occult Blood 5+ (NEGATIVE) 04/25/18 22:15 Urine Nitrite Negative (NEGATIVE) 04/25/18 22:15 Urine Bilirubin Negative (NEGATIVE) 04/25/18 22:15 Urine Urobilinogen Normal (NORMAL) 04/25/18 22:15 Ur Leukocyte Esterase Negative (NEGATIVE) 04/25/18 22:15 Urine RBC 10-20 /HPF (NONE SEEN) 04/25/18 22:15 Urine WBC None seen /HPF (NONE SEEN) 04/25/18 22:15 Ur Squamous Epith Cells Rare /HPF (NEGATIVE) 04/25/18 22:15 Urine Bacteria Negative /HPF (NEGATIVE) 04/25/18 22:15 Ur Culture Indicated? No/not indicated 04/25/18 22:15 - Plan (1) Chest pain Status: Acute Qualifiers: Chest pain type: unspecified Qualified Code(s): R07.9 - Chest pain, unspecified Plan: SEASONAL CLERK, HEPARIN DRIP, SUPPLEMENTAL OXYGEN, CARDIAC CTA, CHEST CT, RESUME HOME MEDS, CONTINUE TO MONITOR (2) Shortness of breath Status: Acute
--- NOTE | 2018-04-27 16:47 | PCM.PROG ---
Progress Note - Progress Note for Day of Date of Exam: 04/27/18 - Subjective Subjective: WAS ADMITTED FOR SHORTNESS OF BREATH, ANGINA, AND HYPERTENSION. TODAY, SHE IS ALERT AND ORIENTED, LYING IN BED ON MORNING ROUNDS. SHE CONTINUES WITH COMPLAINTS OF SHORTNESS OF BREATH AND LOWER EXTREMITY EDEMA. SHE DENIES CHEST PAIN THIS MORNING. ON EXAMINATION, FLOORING INSTALLER REVEALS SINUS RHYTHM WITH NORMAL RATE. BILATERAL LUNGS ARE NOTED WITH DIMINISHED LUNG SOUNDS THROUGHOUT. ABDOMEN IS ROUND, SOFT, AND NON-TENDER WITH NORMAL BOWEL SOUNDS NOTED IN ALL QUADRANTS. BILATERAL LOWER EXTREMITIES ARE NOTED WITH 1+ PITTING EDEMA. HER VITALS THIS MORNING ARE 97.6-59-18-96%-160/72. LABS WERE OBTAINED. ABNORMAL LAB VALUES INCLUDE THE FOLLOWING: WBC 13.2, RBC 3.5, HGB 10.7, HCT 32.1, POTASSIUM 3.1, BUN 24, CREATININE 1.36, GLUCOSE 216, CALCIUM 7.9, MAGNESIUM 1.5, AST 12, ALK PHOS 45, TOTAL PROTEIN 6.2, ALBUMIN 3.0. A CARDIAC CTA WAS OBTAINED YESTERDAY AND REVEALED: Two focal regions of 50% or less stenosis of the proximal left circumflex artery. Calcium score of 346. This places the patient at the 75th to 90th percentile for females of the same age. Mild coronary artery disease highly likely, significant narrowings possible. A CHEST CT WAS OBTAINED AND REVEALED: Moderate bilateral pleural effusions with compressive atelectasis in the lung bases.No evidence of thoracic aortic aneurysm or pulmonary embolus. TODAYS CHEST XRAY REVEALED: Bilateral pleural effusions partially obscuring the lung markings in the lower lobes bilaterally. SHE REMAINS ON A HEPARIN DRIP AT THIS TIME. TODAY, WE WILL CONSULT , TALENT SPECIALIST. WE WILL START FORTAZ 1GM IV Q8H AND DUONEBS. OTHERWISE, WE WILL CONTINUE WITH CURRENT PLAN OF CARE. WE WILL FOLLOW UP WITH AM LABS AND CONTINUE TO MONITOR PATIENT. - Past Medical Family Social History Past Med/Fam/Surg Hx: No changes since H&P Allergies: Allergies ciprofloxacin [From Cipro] Allergy (Verified 01/10/18 21:20) iodine Allergy (Verified 01/10/18 21:40) levofloxacin [From Levaquin] Allergy (Verified 01/11/18 10:11) - Review of Systems ROS: No change since H&P - Vital Signs and I&O's Vital Signs: Temperature 97.4 F Pulse Rate [Left Radial] 81 Pulse Rate 60 Respiratory Rate 24 Blood Pressure [Right Arm] 172/74 Blood Pressure 196/80 O2 Sat by Pulse Oximetry 96 Intake and Output: Intake & Output 04/25/18 04/26/18 04/27/18 04/28/18 11:59 11:59 11:59 11:59 Intake Total 530.46 / 530.46 732.74 / 732.74 1269.8 / 1269.8 Output Total 1070 / 1070 1620 / 1620 2200 / 2200 Balance -539.54 / -539.54 -887.26 / -887.26 -930.2 / -930.2 - Physical Exam Oriented: Normal Eyes: Normal Ear: Normal Nose: Normal Throat: Normal Respiratory: Generalized, Diminished Cardiovascular: Normal : Normal Auscultation: Bowel Sounds: Normal Palpation: Normal Tenderness: Normal Skin: Normal Musculoskeletal: Normal Psychiatric: Normal Mood Description: Calm Affect: Normal Speech Pattern: Clear - Laboratory and Diagnostics Result Diagrams: 04/27/18 03:12 04/27/18 15:08 Labs: Laboratory WBC 13.2 X10^3/uL (3.6-10.0) H 04/27/18 03:12 RBC 3.45 X10^6/uL (3.5-5.4) L 04/27/18 03:12 Hgb 10.7 g/dL (12.0-16.0) L 04/27/18 03:12 Hct 32.1 % (36.0-47.0) L 04/27/18 03:12 MCV 93.3 fL (80.0-100.0) 04/27/18 03:12 MCH 31.0 pg (27.0-34.0) 04/27/18 03:12 MCHC 33.2 g/dL (33.0-35.0) 04/27/18 03:12 RDW 13.8 % (11.6-16.5) 04/27/18 03:12 Plt Count 290 X10^3/uL (150.0-450.0) 04/27/18 03:12 MPV 8.4 fL (7.4-11.0) 04/27/18 03:12 Neut % (Auto) 75.4 % (42.0-75.0) H 04/27/18 03:12 Lymph % (Auto) 13.3 % (21.0-51.0) L 04/27/18 03:12 [place] % (Auto) 11.0 % (0.0-13.0) 04/27/18 03:12 Eos % (Auto) 0.0 % (0.9-2.9) L 04/27/18 03:12 Baso % (Auto) 0.3 % (0.2-1.0) 04/27/18 03:12 Neut # (Auto) 10.0 x10^3/uL (2.2-4.8) H 04/27/18 03:12 Lymph # (Auto) 1.8 X10^3/uL (1.3-2.9) 04/27/18 03:12 [place] # (Auto) 1.5 x10^3/uL (0.3-0.8) H 04/27/18 03:12 Eos # (Auto) 0.0 x10^3/uL (0.0-0.2) 04/27/18 03:12 Baso # (Auto) 0.0 X10^3/uL (0.0-0.1) 04/27/18 03:12 Absolute Nucleated RBC 0.0 /100WBC 04/27/18 03:12 INR Target Range - 04/25/18 21:10 INR 2.16 (0.8-1.3) H 04/25/18 21:10 APTT > 293.0 SECONDS (22.9-36.5) H* 04/27/18 08:57 PTT Comment - 04/27/18 08:57 Sodium 140 mmol/L (136-145) 04/27/18 03:12 Corrected Sodium 143 mmol/L (136-145) 04/27/18 03:12 Potassium 3.2 mmol/L (3.5-5.1) L 04/27/18 15:08 Chloride 103 mmol/L (98-107) 04/27/18 03:12 Carbon Dioxide 27.5 mmol/L (21-32) 04/27/18 03:12 BUN 24 mg/dL (7-18) H 04/27/18 03:12 Creatinine 1.36 mg/dL (0.55-1.02) H 04/27/18 03:12 Est GFR (MDRD) Af Amer 49 (>60) L 04/27/18 03:12 Est GFR (MDRD) Non-Af 41 (>60) L 04/27/18 03:12 Glucose 216 mg/dL (65-99) H 04/27/18 03:12 POC Glucose (mg/dL) 151 mg/dL (65-99) H 04/27/18 16:39 Calcium 7.9 mg/dL (8.5-10.1) L 04/27/18 03:12 Corrected Calcium 8.7 mg/dL (8.5-10.1) 04/27/18 03:12 Magnesium 1.5 mg/dL (1.7-2.9) L 04/27/18 03:12 Total Bilirubin 0.60 mg/dL (0.2-1.0) 04/27/18 03:12 AST 12 Units/L (15-37) L 04/27/18 03:12 ALT 21 Units/L (12-78) 04/27/18 03:12 Alkaline Phosphatase 45 Units/L (46-116) L 04/27/18 03:12 Creatine Kinase 92 Units/L (26-192) 04/26/18 04:25 CK-MB (CK-2) < 1.0 ng/mL (0-4.0) 04/26/18 04:25 CK/CKMB % Calc 1.1 % (<4) 04/26/18 04:25 Troponin I < 0.02 ng/mL (0-1.5) 04/26/18 04:25 Total Protein 6.2 g/dL (6.4-8.2) L 04/27/18 03:12 Albumin 3.0 g/dL (3.4-5.0) L 04/27/18 03:12 Globulin 3.2 g/dL (2.5-4.5) 04/27/18 03:12 Albumin/Globulin Ratio 0.9 Ratio (1.1-2.1) L 04/27/18 03:12 Triglycerides 47 mg/dL (0-150) 04/26/18 04:25 Cholesterol 89 mg/dL (0-200) 04/26/18 04:25 LDL Cholesterol, Calc 50 mg/dL (0-100) 04/26/18 04:25 HDL Cholesterol 30 mg/dL (40-60) L 04/26/18 04:25 Cholesterol/HDL Ratio 3.0 (0.0-5.0) 04/26/18 04:25 Specimen Type Clean catch urine 04/25/18 22:15 Urine Color Pale yellow (YELLOW) 04/25/18 22:15 Urine Appearance Slightly hazy (CLEAR) 04/25/18 22:15 Urine pH 6.0 (5.0 - 8.0) 04/25/18 22:15 Ur Specific [place] 1.005 (1.000-1.030) 04/25/18 22:15 Urine Protein 2+ (NEGATIVE) 04/25/18 22:15 Urine Glucose (UA) Negative (NEGATIVE) 04/25/18 22:15 Urine Ketones Negative (NEGATIVE) 04/25/18 22:15 Urine Occult Blood 5+ (NEGATIVE) 04/25/18 22:15 Urine Nitrite Negative (NEGATIVE) 04/25/18 22:15 Urine Bilirubin Negative (NEGATIVE) 04/25/18 22:15 Urine Urobilinogen Normal (NORMAL) 04/25/18 22:15 Ur Leukocyte Esterase Negative (NEGATIVE) 04/25/18 22:15 Urine RBC 10-20 /HPF (NONE SEEN) 04/25/18 22:15 Urine WBC None seen /HPF (NONE SEEN) 04/25/18 22:15 Ur Squamous Epith Cells Rare /HPF (NEGATIVE) 04/25/18 22:15 Urine Bacteria Negative /HPF (NEGATIVE) 04/25/18 22:15 Ur Culture Indicated? No/not indicated 04/25/18 22:15 - Plan (1) Chest pain Status: Acute Qualifiers: Chest pain type: unspecified Qualified Code(s): R07.9 - Chest pain, unspecified Plan: FLOORING INSTALLER, HEPARIN DRIP, SUPPLEMENTAL OXYGEN, CARDIOLOGY CONSULT, CONTINUE TO MONITOR (2) Shortness of breath Status: Acute (3) Pleural effusion Status: Acute Plan: FORTAZ 1GM IV Q8H, RESPIRATORY TREATMENTS, SUPPLEMENTAL OXYGEN, CONTINUE TO MONITOR
[2018-04-27] MEDS: DUONEB 0.5 MG/3 MG NEB SCH ×2 (17:18→21:05)
[2018-04-27] MEDS ORDERED: NS 50 ML IV 50 ML IV ONE (17:37)
[2018-04-27] MEDS: FORTAZ or TAZICEF VIAL INJ IVP SCH ×2 (17:45→21:33)
[2018-04-27] MEDS: NORMODYNE INJ 20 MG VIAL IVP PRN (18:38)
[2018-04-27] MEDS: LIPITOR TAB 20 MG PO SCH (21:32)
[2018-04-27] MEDS: APRESOLINE TAB 25 MG PO SCH (21:32)
[2018-04-27] MEDS: NORVASC TAB 5 MG PO SCH (21:33)
--- NOTE | 2018-04-28 00:23 | CONS ---
Cardiology Consult Allergies Allergies Allergy/AdvReac Type Severity Reaction Status Date / Time ciprofloxacin [From Cipro] Allergy Verified 01/10/18 21:20 iodine Allergy Verified 01/10/18 21:40 levofloxacin [From Levaquin] Allergy Verified 01/11/18 10:11 Past Medical History Past Medical History: Diabetes (IDDM), Dyslipidemia, Hypertension, Hypothyroidism and Renal Disease (CKD) Additional Medical History: Past Surgical History Surgical History: Cholecystectomy, Hysterectomy and Ortho Surgery Social History Does patient currently use any type of tobacco product: No Have you used tobacco products in the last 12 months: No Type of Tobacco Use: None Does any household member use tobacco: No Alcohol Use: None Medications Home Medications: ciprofloxacin [From Cipro] Allergy (Verified 01/10/18 21:20) iodine Allergy (Verified 01/10/18 21:40) levofloxacin [From Levaquin] Allergy (Verified 01/11/18 10:11) CONTINUE taking the following medications amlodipine 5 mg PO HS 04/26/18 [History] dextromethorphan-guaifenesin [Mucinex DM] 1 tab PO BID PRN 04/26/18 [History] fluoxetine 10 mg PO DAILY 04/26/18 [History] furosemide 20 mg PO DAILY 04/26/18 [History] insulin aspart U-100 [Novolog Flexpen U-100 Insulin] 20 units SUBCUT QAM 04/26/18 [History] losartan 100 mg PO DAILY 04/26/18 [History] rivaroxaban [Xarelto] 15 mg PO BID 04/26/18 [History] Physical Exam Vital Signs: Temperature 97.4 F Pulse Rate [Left Radial] 81 Pulse Rate 66 Respiratory Rate 18 Blood Pressure [Right Arm] 172/74 Blood Pressure 181/76 O2 Sat by Pulse Oximetry 92
[2018-04-28] MEDS: FORTAZ or TAZICEF VIAL INJ IVP SCH ×3 (05:19→21:20)
[2018-04-28 06:38] LABS: BASOPHILS # (AUTO) 0.1 X10^3/uL (0.0-0.1); BASOPHILS % (AUTO) 0.7 % (0.2-1.0); EOSINOPHILS # (AUTO) 0.3 x10^3/uL (0.0-0.2); HEMATOCRIT 33.5 % (36.0-47.0); HEMOGLOBIN 11.4 g/dL (12.0-16.0); LYMPHOCYTES # (AUTO) 2.1 X10^3/uL (1.3-2.9); LYMPHOCYTES % (AUTO) 25.4 % (21.0-51.0); MEAN CORPUSCULAR HEMOGLOBIN 31.7 pg (27.0-34.0); MEAN CORPUSCULAR VOLUME 93.1 fL (80.0-100.0); MEAN PLATELET VOLUME 8.2 fL (7.4-11.0); MONOCYTES # (AUTO) 0.8 x10^3/uL (0.3-0.8); MONOCYTES % (AUTO) 9.8 % (0.0-13.0); NEUTROPHILS # (AUTO) 5.2 x10^3/uL (2.2-4.8); NEUTROPHILS % (AUTO) 61.1 % (42.0-75.0); PLATELET COUNT 282 X10^3/uL (150.0-450.0); RED CELL DISTRIBUTION WIDTH 13.6 % (11.6-16.5); WHITE BLOOD COUNT 8.5 X10^3/uL (3.6-10.0)
[2018-04-28 07:06] LABS: ALBUMIN 3.2 g/dL (3.4-5.0); CALCIUM 8.2 mg/dL (8.5-10.1); CARBON DIOXIDE 28.2 mmol/L (21-32); COR CA(FOR HYPOALB) 8.8 mg/dL (8.5-10.1); CREATININE 1.37 mg/dL (0.55-1.02); MAGNESIUM 1.8 mg/dL (1.7-2.9); TOTAL PROTEIN 6.5 g/dL (6.4-8.2)
[2018-04-28] MEDS: DUONEB 0.5 MG/3 MG NEB SCH ×4 (08:57→21:28)
[2018-04-28] MEDS: COZAAR PO SCH (09:14)
[2018-04-28] MEDS: APRESOLINE TAB 25 MG PO SCH ×4 (09:14→20:12)
[2018-04-28] MEDS: SYNTHROID 112 mcg TAB PO SCH (09:14)
[2018-04-28] MEDS: PriLOSEC PO SCH (09:14)
[2018-04-28] MEDS: LOVENOX INJ 40 MG SYR SC SCH (09:15)
[2018-04-28] MEDS: PROzac PO SCH (09:15)
[2018-04-28] MEDS: VITAMIN D3 PO SCH (09:29)
[2018-04-28] MEDS ORDERED: LASIX IVP SCH (10:00)
[2018-04-28] MEDS ORDERED: NS 50 ML IV 50 ML IV ONE (13:57)
[2018-04-28] MEDS ORDERED: NS 500 ML IV 500 ML IV ONE (14:00)
[2018-04-28] MEDS ORDERED: SNACK - Diabetic Appropriate PO SCH (20:00)
[2018-04-28] MEDS: NORVASC TAB 5 MG PO SCH (20:12)
[2018-04-28] MEDS: LIPITOR TAB 20 MG PO SCH (20:12)
[2018-04-28] MEDS: LASIX IVP SCH (20:13)
[2018-04-28] MEDS ORDERED: MILK OF MAGNESIA PO SCH (21:00)
[2018-04-28] MEDS ORDERED: COLACE CAP 100 MG PO SCH (21:00)
[2018-04-29] MEDS: FORTAZ or TAZICEF VIAL INJ IVP SCH (05:13)
[2018-04-29] MEDS: LASIX IVP SCH (05:48)
[2018-04-29 06:16] LABS: BASOPHILS # (AUTO) 0.1 X10^3/uL (0.0-0.1); EOSINOPHILS # (AUTO) 0.4 x10^3/uL (0.0-0.2); EOSINOPHILS % (AUTO) 5.4 % (0.9-2.9); HEMATOCRIT 35.3 % (36.0-47.0); HEMOGLOBIN 12.1 g/dL (12.0-16.0); LYMPHOCYTES # (AUTO) 1.6 X10^3/uL (1.3-2.9); MEAN CORPUSCULAR HEMOGLOBIN 31.8 pg (27.0-34.0); MEAN CORPUSCULAR HGB CONC 34.3 g/dL (33.0-35.0); MEAN CORPUSCULAR VOLUME 92.8 fL (80.0-100.0); MEAN PLATELET VOLUME 8.4 fL (7.4-11.0); MONOCYTES # (AUTO) 0.8 x10^3/uL (0.3-0.8); NEUTROPHILS # (AUTO) 3.9 x10^3/uL (2.2-4.8); NEUTROPHILS % (AUTO) 57.6 % (42.0-75.0); PLATELET COUNT 293 X10^3/uL (150.0-450.0); RED BLOOD COUNT 3.81 X10^6/uL (3.5-5.4); RED CELL DISTRIBUTION WIDTH 13.9 % (11.6-16.5); WHITE BLOOD COUNT 6.7 X10^3/uL (3.6-10.0)
[2018-04-29 06:25] LABS: ALANINE AMINOTRANSFERASE 33 Units/L (12-78); ALBUMIN 3.4 g/dL (3.4-5.0); ALKALINE PHOSPHATASE 49 Units/L (46-116); ASPARTATE AMINO TRANSFERASE 25 Units/L (15-37); BLOOD UREA NITROGEN 25 mg/dL (7-18); CALCIUM 8.9 mg/dL (8.5-10.1); CARBON DIOXIDE 32.6 mmol/L (21-32); CHLORIDE 98 mmol/L (98-107); COR NA(FOR HYPERGLY) 140 mmol/L (136-145); CREATININE 1.44 mg/dL (0.55-1.02); SODIUM 138 mmol/L (136-145); TOTAL PROTEIN 6.9 g/dL (6.4-8.2); eGFR NON BLACK RACES 38 (>60)
[2018-04-29] MEDS: K-DUR TAB 20 MEQ PO PRN (06:38)
[2018-04-29] MEDS: DUONEB 0.5 MG/3 MG NEB SCH (08:45)
[2018-04-29] MEDS: PROzac PO SCH (09:39)
[2018-04-29] MEDS: PriLOSEC PO SCH (09:39)
[2018-04-29] MEDS: COZAAR PO SCH (09:39)
[2018-04-29] MEDS: SYNTHROID 112 mcg TAB PO SCH (09:39)
[2018-04-29] MEDS: VITAMIN D3 PO SCH (09:40)
[2018-04-29] MEDS: APRESOLINE TAB 25 MG PO SCH (09:40)
[2018-04-29] MEDS: LOVENOX INJ 40 MG SYR SC SCH (09:40)
--- NOTE | 2018-04-29 10:03 | PCM.PROG ---
Progress Note - Progress Note for Day of Date of Exam: 04/28/18 - Subjective Subjective: WAS ADMITTED FOR SHORTNESS OF BREATH, ANGINA, AND HYPERTENSION. TODAY, SHE IS ALERT AND ORIENTED, LYING IN BED ON MORNING ROUNDS. SHE CONTINUES WITH COMPLAINTS OF SHORTNESS OF BREATH AND LOWER EXTREMITY EDEMA. SHE DENIES CHEST PAIN THIS MORNING. SHE DOES HAVE A HISTORY OF CONGESTIVE HEART FAILURE. SHE HAS RECEIVED IV LASIX WELL RESPIRATORY TREATMENTS WHILE IN THE HOSPITAL. DESPITE LASIX AND RESPIRATORY TREATMENTS, HER OXYGEN SATURATIONS CONTINUE TO FALL INTO THE 80s ON ROOM AIR. THEREFORE, SHE HAS BEEN RECEIVING SUPPLEMENTAL OXYGEN. WE CONSULTED , PARCEL POST DELIVERY YESTERDAY AND HE RECOMMENDED AN OUTPATIENT LEXISCAN. ON EXAMINATION, WOODS BOSS REVEALS SINUS RHYTHM WITH NORMAL RATE. BILATERAL LUNGS ARE NOTED WITH DIMINISHED LUNG SOUNDS THROUGHOUT. ABDOMEN IS ROUND, SOFT, AND NON-TENDER WITH NORMAL BOWEL SOUNDS NOTED IN ALL QUADRANTS. BILATERAL LOWER EXTREMITIES ARE NOTED WITH 1+ PITTING EDEMA. HER VITALS THIS MORNING ARE 97.9-63-21-95%-180/74. LABS WERE OB TAINED. ABNORMAL LAB VALUES INCLUDE THE FOLLOWING: HGB 11.4, HCT 33.5, BUN 24, CREATININE 1.37, GLUCOSE 153, CALCIUM 8.2, ALK PHOS 44, ALBUMIN 3.2. TODAYS CHEST XRAY REVEALED: DECREASING BILATERAL PLEURAL EFFUSIONS. RIGHT BASILAR LUNG INFILTRATE. THE HEPARIN DRIP THAT SHE WAS ON WAS DISCONTINUED YESTERDAY AND SHE WAS STARTED ON LOVENOX 40MG SC DAILY. SHE WAS ALSO STARTED ON HYDRALAZINE 25MG PO BID BY . DUE TO INCREASED BLOOD PRESSURE, WE WILL INCREASE THE HYDRALAZINE TO 50MG PO BID AND CONTINUE WITH LASIX 20MG IV BID. WE WILL HAVE RESPIRATORY THERAPY ASSESS PATIENT FOR HOME OXYGEN. OTHERWISE, WE WILL CONTINUE WITH CURRENT PLAN OF CARE. WE WILL FOLLOW UP WITH AM LABS AND CONTINUE TO MONITOR PATIENT. - Past Medical Family Social History Past Med/Fam/Surg Hx: No changes since H&P Allergies: Allergies ciprofloxacin [From Cipro] Allergy (Verified 01/10/18 21:20) iodine Allergy (Verified 01/10/18 21:40) levofloxacin [From Levaquin] Allergy (Verified 01/11/18 10:11) - Review of Systems ROS: No change since H&P - Vital Signs and I&O's Vital Signs: Temperature 97.0 F Pulse Rate [Left Radial] 81 Pulse Rate 95 Respiratory Rate 20 Blood Pressure [Right Arm] 172/74 Blood Pressure 159/67 O2 Sat by Pulse Oximetry 89 Intake and Output: Intake & Output 04/26/18 04/27/18 04/28/18 04/29/18 11:59 11:59 11:59 11:59 Intake Total 530.46 / 530.46 732.74 / 732.74 1529.8 / 1529.8 1715 / 1715 Output Total 1070 / 1070 1620 / 1620 3350 / 3350 5300 / 5300 Balance -539.54 / -539.54 -887.26 / -887.26 -1820.2 / -1820.2 -3585 / -3585 - Physical Exam Oriented: Normal Eyes: Normal Ear: Normal Nose: Normal Throat: Normal Respiratory: Generalized, Diminished Cardiovascular: Normal : Normal Auscultation: Bowel Sounds: Normal Tenderness: Normal Skin: Normal Musculoskeletal: Normal Psychiatric: Normal Mood Description: Calm Affect: Normal Speech Pattern: Clear, Appropriate - Laboratory and Diagnostics Result Diagrams: 04/29/18 05:30 04/29/18 05:30 Labs: Laboratory WBC 6.7 X10^3/uL (3.6-10.0) 04/29/18 05:30 RBC 3.81 X10^6/uL (3.5-5.4) 04/29/18 05:30 Hgb 12.1 g/dL (12.0-16.0) 04/29/18 05:30 Hct 35.3 % (36.0-47.0) L 04/29/18 05:30 MCV 92.8 fL (80.0-100.0) 04/29/18 05:30 MCH 31.8 pg (27.0-34.0) 04/29/18 05:30 MCHC 34.3 g/dL (33.0-35.0) 04/29/18 05:30 RDW 13.9 % (11.6-16.5) 04/29/18 05:30 Plt Count 293 X10^3/uL (150.0-450.0) 04/29/18 05:30 MPV 8.4 fL (7.4-11.0) 04/29/18 05:30 Neut % (Auto) 57.6 % (42.0-75.0) 04/29/18 05:30 Lymph % (Auto) 24.0 % (21.0-51.0) 04/29/18 05:30 [place] % (Auto) 12.0 % (0.0-13.0) 04/29/18 05:30 Eos % (Auto) 5.4 % (0.9-2.9) H 04/29/18 05:30 Baso % (Auto) 1.0 % (0.2-1.0) 04/29/18 05:30 Neut # (Auto) 3.9 x10^3/uL (2.2-4.8) 04/29/18 05:30 Lymph # (Auto) 1.6 X10^3/uL (1.3-2.9) 04/29/18 05:30 [place] # (Auto) 0.8 x10^3/uL (0.3-0.8) 04/29/18 05:30 Eos # (Auto) 0.4 x10^3/uL (0.0-0.2) H 04/29/18 05:30 Baso # (Auto) 0.1 X10^3/uL (0.0-0.1) 04/29/18 05:30 Absolute Nucleated RBC 0.1 /100WBC 04/29/18 05:30 INR Target Range - 04/25/18 21:10 INR 2.16 (0.8-1.3) H 04/25/18 21:10 APTT > 293.0 SECONDS (22.9-36.5) H* 04/27/18 08:57 PTT Comment - 04/27/18 08:57 Sodium 138 mmol/L (136-145) 04/29/18 05:30 Corrected Sodium 140 mmol/L (136-145) 04/29/18 05:30 Potassium 3.5 mmol/L (3.5-5.1) 04/29/18 05:30 Chloride 98 mmol/L (98-107) 04/29/18 05:30 Carbon Dioxide 32.6 mmol/L (21-32) H 04/29/18 05:30 BUN 25 mg/dL (7-18) H 04/29/18 05:30 Creatinine 1.44 mg/dL (0.55-1.02) H 04/29/18 05:30 Est GFR (MDRD) Af Amer 46 (>60) L 04/29/18 05:30 Est GFR (MDRD) Non-Af 38 (>60) L 04/29/18 05:30 Glucose 164 mg/dL (65-99) H 04/29/18 05:30 POC Glucose (mg/dL) 155 mg/dL (65-99) H 04/29/18 05:46 Calcium 8.9 mg/dL (8.5-10.1) 04/29/18 05:30 Corrected Calcium TNP 04/29/18 05:30 Magnesium 1.8 mg/dL (1.7-2.9) 04/28/18 06:05 Total Bilirubin 1.00 mg/dL (0.2-1.0) 04/29/18 05:30 AST 25 Units/L (15-37) 04/29/18 05:30 ALT 33 Units/L (12-78) 04/29/18 05:30 Alkaline Phosphatase 49 Units/L (46-116) 04/29/18 05:30 Creatine Kinase 92 Units/L (26-192) 04/26/18 04:25 CK-MB (CK-2) < 1.0 ng/mL (0-4.0) 04/26/18 04:25 CK/CKMB % Calc 1.1 % (<4) 04/26/18 04:25 Troponin I < 0.02 ng/mL (0-1.5) 04/26/18 04:25 Total Protein 6.9 g/dL (6.4-8.2) 04/29/18 05:30 Albumin 3.4 g/dL (3.4-5.0) 04/29/18 05:30 Globulin 3.5 g/dL (2.5-4.5) 04/29/18 05:30 Albumin/Globulin Ratio 1.0 Ratio (1.1-2.1) L 04/29/18 05:30 Triglycerides 47 mg/dL (0-150) 04/26/18 04:25 Cholesterol 89 mg/dL (0-200) 04/26/18 04:25 LDL Cholesterol, Calc 50 mg/dL (0-100) 04/26/18 04:25 HDL Cholesterol 30 mg/dL (40-60) L 04/26/18 04:25 Cholesterol/HDL Ratio 3.0 (0.0-5.0) 04/26/18 04:25 Specimen Type Clean catch urine 04/25/18 22:15 Urine Color Pale yellow (YELLOW) 04/25/18 22:15 Urine Appearance Slightly hazy (CLEAR) 04/25/18 22:15 Urine pH 6.0 (5.0 - 8.0) 04/25/18 22:15 Ur Specific [place] 1.005 (1.000-1.030) 04/25/18 22:15 Urine Protein 2+ (NEGATIVE) 04/25/18 22:15 Urine Glucose (UA) Negative (NEGATIVE) 04/25/18 22:15 Urine Ketones Negative (NEGATIVE) 04/25/18 22:15 Urine Occult Blood 5+ (NEGATIVE) 04/25/18 22:15 Urine Nitrite Negative (NEGATIVE) 04/25/18 22:15 Urine Bilirubin Negative (NEGATIVE) 04/25/18 22:15 Urine Urobilinogen Normal (NORMAL) 04/25/18 22:15 Ur Leukocyte Esterase Negative (NEGATIVE) 04/25/18 22:15 Urine RBC 10-20 /HPF (NONE SEEN) 04/25/18 22:15 Urine WBC None seen /HPF (NONE SEEN) 04/25/18 22:15 Ur Squamous Epith Cells Rare /HPF (NEGATIVE) 04/25/18 22:15 Urine Bacteria Negative /HPF (NEGATIVE) 04/25/18 22:15 Ur Culture Indicated? No/not indicated 04/25/18 22:15 - Plan (1) Chest pain Status: Acute Qualifiers: Chest pain type: unspecified Qualified Code(s): R07.9 - Chest pain, unspecified Plan: WOODS BOSS, HEPARIN DRIP, SUPPLEMENTAL OXYGEN, CARDIOLOGY CONSULT, CONTINUE TO MONITOR (2) Shortness of breath Status: Acute (3) Pleural effusion Status: Acute Plan: FORTAZ 1GM IV Q8H, RESPIRATORY TREATMENTS, SUPPLEMENTAL OXYGEN, CONTINUE TO MONITOR (4) Congestive heart failure Status: Acute Qualifiers: Heart failure type: unspecified Heart failure chronicity: acute on chronic Qualified Code(s): I50.9 - Heart failure, unspecified Plan: IV LASIX, RESPIRATORY TREATMENTS, SUPPLEMENTAL OXYGEN, CONTINUE TO MONITOR
[2018-04-29 14:32] VITALS: BP 154/70
--- NOTE | 2018-06-10 00:28 | DR.CARTERD ---
- Discharge Summary for: Discharge Summary for Date of:: 04/29/18 - Admission Date Date of Admission: 04/25/18 - Admission Diagnoses Admission Diagnosis: (1) Chest pain (2) Shortness of breath - Discharge Date Discharge Date: 04/29/18 - Discharge Diagnoses Discharge Diagnosis: (1) Congestive heart failure (2) Chest pain (2) Shortness of breath (3) Pleural effusion - Hospital Course Hospital Course: DAY ONE, PATIENT ADMITTED TO THE HOSPITAL ON THE CHEST PAIN PROTOCOL FOR SHORTNESS OF BREATH AND UNSTABLE ANGINA. SHE WAS ADMITTED TO THE INTENSIVE CARE UNIT ON A HEPARIN DRIP. WE CONTINUED TO MONITOR PATIENT. DAY TWO, SHE WAS ALERT AND ORIENTED, LYING IN BED ON MORNING ROUNDS. SHE CONTINUED WITH COMPLAINTS OF SHORTNESS OF BREATH AND INTERMITTENT CHEST PAIN. SHE ALSO REPORTED SWELLING TO THE LOWER EXTREMITIES. PATIENT STATES THAT SHE WAS UNABLE TO WALK FOR LONG DISTANCES WITHOUT BECOMING SEVERELY SHORT OF BREATH. ON EXAMINATION, DIALYSIS CLINICAL MANAGER REVEALED SINUS RHYTHM WITH NORMAL RATE. BILATERAL LUNGS WERE NOTED WITH DIMINISHED LUNG SOUNDS THROUGHOUT. ABDOMEN WAS ROUND, SOFT, AND NON-TENDER WITH NORMAL BOWEL SOUNDS NOTED IN ALL QUADRANTS. BILATERAL LOWER EXTREMITIES ARE NOTED WITH 1+ PITTING EDEMA. HER VITALS THIS MORNING WERE 98.0-64-20-94%-197/84. LABS WERE OBTAINED. ABNORMAL LAB VALUES INCLUDED THE FOLLOWING: WBC 11.7, HCT 35.0, POTASSIUM 3.4, CREATININE 1.19, GLUCOSE 200, CALCIUM 7.69, ALBUMIN 3.2. CARDIAC ENZYMES WITHIN NORMAL LIMITS. MOST RECENT EKG REVEALED SINUS RHYTHM WITH HR 70. AN ECHOCARDIOGRAM REVEALED AN EJECTION FRACTION OF 50%. SHE REMAINED ON A HEPARIN DRIP AT THIS TIME. SHE WAS SCHEDULE FOR A CARDIAC CTA WELL A CHEST CT TODAY. WE RESUMED HER HOME MEDICATIONS TODAY WHICH INCLUDED ANTIHYPERTENSIVES. WE CONTINUED WITH CURRENT PLAN OF CARE. WE FOLLOWED UP WITH AM LABS AND CONTINUED TO MONITOR PATIENT. DAY THREE, SHE IS ALERT AND ORIENTED, LYING IN BED ON MORNING ROUNDS. SHE CONTINUED WITH COMPLAINTS OF SHORTNESS OF BREATH AND LOWER EXTREMITY EDEMA. SHE DENIED CHEST PAIN THIS MORNING. ON EXAMINATION, DIALYSIS CLINICAL MANAGER REVEALS SINUS RHYTHM WITH NORMAL RATE. BILATERAL LUNGS WERE NOTED WITH DIMINISHED LUNG SOUNDS THROUGHOUT. ABDOMEN IS ROUND, SOFT, AND NON-TENDER WITH NORMAL BOWEL SOUNDS NOTED IN ALL QUADRANTS. BILATERAL LOWER EXTREMITIES WERE NOTED WITH 1+ PITTING EDEMA. HER VITALS THIS MORNING WERE 97.6-59-18-96%-160/72. LABS WERE OBTAINED. ABNORMAL LAB VALUES INCLUDED THE FOLLOWING: WBC 13.2, RBC 3.5, HGB 10.7, HCT 32.1, POTASSIUM 3.1, BUN 24, CREATININE 1.36, GLUCOSE 216, CALCIUM 7.9, MAGNESIUM 1.5, AST 12, ALK PHOS 45, TOTAL PROTEIN 6.2, ALBUMIN 3.0. A CARDIAC CTA WAS OBTAINED YESTERDAY AND REVEALED: Two focal regions of 50% or less stenosis of the proximal left circumflex artery. Calcium score of 346. This places the patient at the 75th to 90th percentile for females of the same age. Mild coronary artery disease highly likely, significant narrowings possible. A CHEST CT WAS OBTAINED AND REVEALED: Moderate bilateral pleural effusions with compressive atelectasis in the lung bases.No evidence of thoracic aortic aneurysm or pulmonary embolus. TODAYS CHEST XRAY REVEALED: Bilateral pleural effusions partially obscuring the lung markings in the lower lobes bilaterally. SHE REMAINED ON A HEPARIN DRIP AT THIS TIME. WE CONSULTED , GROCERY CADDY. WE STARTED FORTAZ 1GM IV Q8H AND DUONEBS. WE CONTINUED WITH CURRENT PLAN OF CARE. WE FOLLOWED UP WITH AM LABS AND CONTINUED TO MONITOR PATIENT. DAY FOUR, SHE WAS ALERT AND ORIENTED, LYING IN BED ON MORNING ROUNDS. SHE CONTINUED WITH COMPLAINTS OF SHORTNESS OF BREATH AND LOWER EXTREMITY EDEMA. SHE DENIED CHEST PAIN THIS MORNING. SHE DOES HAVE A HISTORY OF CONGESTIVE HEART FAILURE. SHE HAD RECEIVED IV LASIX WELL RESPIRATORY TREATMENTS WHILE IN THE HOSPITAL. DESPITE LASIX AND RESPIRATORY TREATMENTS, HER OXYGEN SATURATIONS CONTINUED TO FALL INTO THE 80s ON ROOM AIR. THEREFORE, SHE HAD BEEN RECEIVING SUPPLEMENTAL OXYGEN. WE CONSULTED , GROCERY CADDY YESTERDAY AND HE RECOMMENDED AN OUTPATIENT LEXISCAN. ON EXAMINATION, DIALYSIS CLINICAL MANAGER REVEALED SINUS RHYTHM WITH NORMAL RATE. BILATERAL LUNGS WERE NOTED WITH DIMINISHED LUNG SOUNDS THROUGHOUT. ABDOMEN WAS ROUND, SOFT, AND NON-TENDER WITH NORMAL BOWEL SOUNDS NOTED IN ALL QUADRANTS. BILATERAL LOWER EXTREMITIES WERE NOTED WITH 1+ PITTING EDEMA. HER VITALS THIS MORNING ARE 97.9-63-21-95%-180/74. LABS WERE OBTAINED. ABNORMAL LAB VALUES INCLUDED THE FOLLOWING: HGB 11.4, HCT 33.5, BUN 24, CREATININE 1.37, GLUCOSE 153, CALCIUM 8.2, ALK PHOS 44, ALBUMIN 3.2. TODAYS CHEST XRAY REVEALED: DECREASING BILATERAL PLEURAL EFFUSIONS. RIGHT BASILAR LUNG INFILTRATE. THE HEPARIN DRIP THAT SHE WAS ON WAS DISCONTINUED YESTERDAY AND SHE WAS STARTED ON LOVENOX 40MG SC DAILY. SHE WAS ALSO STARTED ON HYDRALAZINE 25MG PO BID BY . DUE TO INCREASED BLOOD PRESSURE, WE INCREASED THE HYDRALAZINE TO 50MG PO BID AND CONTINUED WITH LASIX 20MG IV BID. WE HAD RESPIRATORY THERAPY ASSESS PATIENT FOR HOME OXYGEN. WE CONTINUED WITH CURRENT PLAN OF CARE. WE FOLLOWED UP WITH AM LABS AND CONTINUED TO MONITOR PATIENT. DAY FIVE, PATIENT ALERT AND ORIENTED SITTING UP IN BED DURING ROUNDS. PATIENT REPORTED FEELING MUCH BETTER TODAY. PATIENT SET UP WITH HOME OXYGEN AND HOME HEALTH. VITAL SIGNS STABLE. LABS ARE WITHIN NORMAL RANGE FOR PATIENT. BILATERAL LUNG SOUNDS NOTED TO BE CLEAR ON AUSCULTATION. WE PLANNED FOR DISCHARGE. INSTRUCTIONS FOR MEDICATIONS AND FOLLOW UP DISCUSSED WITH PATIENT AND FAMILY, BOTH VOICED UNDERSTANDING. PATIENT DISCHARGED HOME IN STABLE CONDITION WITH FAMILY.PATIENT HAD PORTABLE OXYGEN ON DISCHARGE. - Discharge Medications Discharge Medications: Home Medication List Novolog Flexpen U-100 Insulin 20 units SUBCUT QAM 04/26/18 [History] Xarelto 15 mg PO BID 04/26/18 [History] amlodipine 5 mg PO HS 04/26/18 [History] dextromethorphan-guaifenesin [Mucinex DM] 1 tab PO BID PRN 04/26/18 [History] fluoxetine 10 mg PO DAILY 04/26/18 [History] losartan 100 mg PO DAILY 04/26/18 [History] cefdinir 300 mg PO BID #14 cap 04/29/18 [Rx] furosemide [Lasix] 20 mg PO BID #60 tab 04/29/18 [Rx] hydralazine 50 mg PO TID #90 tab 04/29/18 [Rx] ipratropium-albuterol 1 ea NEB TID #50 units 04/29/18 [Rx] Prescriptions: cefdinir Larry Bernal furosemide [Lasix] Larry Bernal hydralazine Larry Bernal ipratropium-albuterol Larry Bernal Ambulatory Orders atorvastatin 20 mg PO HS 01/10/18 cholecalciferol (vitamin D3) 10,000 units PO DAILY 01/10/18 levothyroxine 1 tab PO DAILY 01/10/18 omeprazole 20 mg PO DAILY 01/10/18 insulin aspart U-100 [Novolog Flexpen U-100 Insulin] 20 units SUBCUT QAM 04/26/18 - Discharge Disposition Discharge Disposition: PATIENT TO FOLLOW UP IN OUR OFFICE IN ONE WEEK. HOME HEALTH TO FOLLOW UP WITH PATIENT ON NEXT AVAILABLE APPOINTMENT TIME.
--- NOTE | 2018-06-22 13:30 | DR.TELECAR ---
TELECARDIOLOGY Consultation for Day of: Date: 04/27/18 Chief Complaint Chief Complaint: shortness of breath and cp Allergies Allergies Allergy/AdvReac Type Severity Reaction Status Date / Time ciprofloxacin [From Cipro] Allergy Verified 01/10/18 21:20 iodine Allergy Verified 01/10/18 21:40 levofloxacin [From Levaquin] Allergy Verified 01/11/18 10:11 History of Present Illness History of Present Illness: Patient was admitted for shortness of breath that started a few weeks ago. She has also been having some problems with swelling of the lower extremities and had one episode of cp. She got to the point that she was having so much sob that she was not able to walk for long distances. She was admitted and a CTa of the coronaries was done where her calcium score was 346 and it showed mod pericardial effusions and B/L pleural effusions. She does have a history of CKD where she has been seen by a cns in the past but currently does not. Past Medical History Past Medical History: Diabetes (IDDM), Dyslipidemia, Hypertension, Hypothyroidism and Renal Disease (CKD) Additional Medical History: Past Surgical History Surgical History: Cholecystectomy, Hysterectomy and Ortho Surgery Social History Does patient currently use any type of tobacco product: No Have you used tobacco products in the last 12 months: No Type of Tobacco Use: None Does any household member use tobacco: No Alcohol Use: None Medications Home Medications: ciprofloxacin [From Cipro] Allergy (Verified 01/10/18 21:20) iodine Allergy (Verified 01/10/18 21:40) levofloxacin [From Levaquin] Allergy (Verified 01/11/18 10:11) CONTINUE taking the following medications amlodipine 5 mg PO HS 04/26/18 [History] dextromethorphan-guaifenesin [Mucinex DM] 1 tab PO BID PRN 04/26/18 [History] fluoxetine 10 mg PO DAILY 04/26/18 [History] furosemide 20 mg PO DAILY 04/26/18 [History] insulin aspart U-100 [Novolog Flexpen U-100 Insulin] 20 units SUBCUT QAM 04/26/18 [History] losartan 100 mg PO DAILY 04/26/18 [History] rivaroxaban [Xarelto] 15 mg PO BID 04/26/18 [History] Review of Systems Constitutional: No Symptoms Reported Eyes: No Symptoms Reported ENT: No Symptoms Reported Respiratory: Shortness of Breath Cardiovascular: Chest Pain Gastrointestinal: No Symptoms Reported Genitourinary: No Symptoms Reported Musculoskeletal: No Symptoms Reported Skin: No Symptoms Reported Neurological: No Symptoms Reported Physical Exam Vital Signs: Temperature 97.4 F Pulse Rate [Left Radial] 81 Pulse Rate 65 Respiratory Rate 23 Blood Pressure [Right Arm] 172/74 Blood Pressure 174/77 O2 Sat by Pulse Oximetry 96 Oriented: Normal Eyes: Normal Ear: Normal Nose: Normal Throat: Normal Respiratory: Clear Throughout (on O2) Cardiovascular: Normal : Normal Auscultation: Bowel Sounds: Normal Palpation: Normal Tenderness: Normal Skin: Normal Musculoskeletal: Normal Psychiatric: Normal Mood Description: Calm Affect: Normal Speech Pattern: Clear Medical Decision Making Reason for Consult: Chest Pain Results Reviewed: H&P EKG Results: Sinus Rhythm (hr 67) Labs reviewed: Yes Radiology Reviewed: Yes (see note above- cta coronaries) Plan Plan: 1. Chest pain- will plan for stress test prior to d/c or as out pt 2. Fluid overload- will follow up with echi, Lasix 20mg once now 3. Htn- start hydralazine 25mg BID 4. d/c heparin and start lovenox 40mg sc daily
== END 2018-04-29 14:05 | disposition home or self-care (01) | DRG 311 ==
LOC: ICU 20:02
PROVIDERS: ADMIT Internal Medicine; ATTEND Internal Medicine
DX: E03.8 Other specified hypothyroidism; I11.0 Hypertensive heart disease with heart failure; R60.0 Localized edema; I20.0 Unstable angina; I50.9 Heart failure, unspecified; E11.65 Type 2 diabetes mellitus with hyperglycemia; J90 Pleural effusion, not elsewhere classified; R07.89 Other chest pain; E78.2 Mixed hyperlipidemia; N18.3 Chronic kidney disease, stage 3 (moderate); R06.02 Shortness of breath
CPT/HCPCS: 36415; 71010; 71045; 71260; 75574; 80053; 80061; 81001; 82550; 82553; 83735; 84132; 84484; 85014; 85018; 85025; 85610; 85730; 87040; 93005; 93306; 94640; A4216; A4222; J0713; J1644; J1650; J1940; J3475; J3490; J7040; J7050; J7512; J7620